=== PATIENT | female | born 1980 | race Two or more races ===

== ENCOUNTER 2022-12-25 18:24 | Emergency (ER) | payer OTHER ==
[~2022-12-25] VITALS: Ht 149.9 cm; Wt 70.8 kg
[2022-12-25 18:51] VITALS: BP 137/97; PULSE 81; RESP 20; TEMP 98; O2SAT 99
[2022-12-25 23:05] VITALS: BP 137/97; PULSE 81; RESP 20; TEMP 98; O2SAT 99
--- NOTE | 2022-12-25 23:05 | NUR ---
PT DID NOT WANT TO WAIT FOR DC INSTRUCTIONS. PAULA MOORE AWARE. NO CONTACT WITH PT
--- NOTE | 2022-12-25 23:05 | NUR ---
Note estelle in ED - 12/25/22 at 2320 by [id number] PATIENT ELOPED FROM FACILITY. DISCHARGE INSTRUCTIONS NOT GIVEN TO PATIENT. 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
== END 2022-12-25 23:05 | disposition left against medical advice (07) ==
LOC: MED 18:24
DX: M79.605 Pain in left leg (principal)
CPT/HCPCS: 93971; 99284; Q0092